=== PATIENT | female | born 1990 | race Native Hawaiian/Other Pacific Islander ===

== ENCOUNTER 2016-08-25 10:26 | Emergency (ER) | payer OTHER ==
--- NOTE | 2016-08-25 11:24 | ED.PDOC ---
History of Present Illness - General Chief Complaint: Respiratory Problem Time Seen by Provider: 08/25/16 11:17 Source: patient Exam Limitations: no limitations Additional Information: 3 WKS COUGH. F/C/S, FRONTAL VALLEJO. V X 4 D/T COUGH. NOT SEEN A YET. - History of Present Illness Severity: moderate Improving Factors: nothing Worsening Factors: nothing Associated Symptoms: cough, headaches Allergies/Adverse Reactions: Allergies Bee Venom Allergy (Verified 05/09/15 15:55) Shortness of Breath Pineapple Allergy (Verified 05/09/15 15:55) Other severe swelling Home Medications: Ambulatory Orders Amoxicillin & Pot Clavulanate [Augmentin] 875 mg PO BID #20 tab 08/25/16 Benzonatate Perles [Tessalon Perles] 100 mg PO TID PRN #30 cap 08/25/16 Methylprednisolone [Medrol Dose Salas] 4 mg PO DAILY #1 tab 08/25/16 Review of Systems - Review of Systems Constitutional: States: chills, fever EENTM: Denies: ear pain, nose pain, throat pain Respiratory: States: cough. Denies: short of breath, wheezing Cardiology: States: no symptoms reported Gastrointestinal/Abdominal: Denies: abdominal pain, nausea Genitourinary: States: no symptoms reported Musculoskeletal: States: other - BODY/MUSCLE ACHES Skin: States: no symptoms reported Neurological: States: no symptoms reported Endocrine: States: no symptoms reported Hematologic/Lymphatic: States: no symptoms reported All other Systems: Reviewed and Negative Past Medical History (General) - Patient Medical History Hx Stroke: No Hx Congestive Heart Failure: No Hx Diabetes: No Hx Cancer: Yes - Cervical Hx MRSA: No - Vaccination History Hx Tetanus, Diphtheria Vaccination: Yes - may Hx Influenza Vaccination: Yes Hx Pneumococcal Vaccination: No - Social History Hx Tobacco Use: Yes Hx Alcohol Use: No Hx Substance Use: No Hx Substance Use Treatment: No Hx Depression: Yes - Female History Patient : Yes Expected Date of Delivery:: 01/09/16 Hx Gestational Age: 21 Family Medical History - Family History Father Living Status: Hx Family Cancer: Yes - pancreas Physical Exam - Physical Exam General Appearance: Alert, Ill Appearing Eye Exam: bilateral normal Ears, Nose, Throat: hearing grossly normal, normal ENT inspection, normal pharynx Neck: non-tender, full range of motion, supple Respiratory: chest non-tender, no respiratory distress, no accessory muscle use , rhonchi, inspiration Cardiovascular/Chest: normal peripheral pulses, regular rate, rhythm, no JVD Peripheral Pulses: radial,right: 2+, radial,left: 2+ Gastrointestinal/Abdominal: normal bowel sounds, non tender, soft Back Exam: normal inspection, no CVA tenderness Extremity: normal range of motion, non-tender Neurologic: ear specialist II-XII nml as tested, alert, oriented x 3 Skin Exam: normal color, warm/dry Lymphatic: no adenopathy Progress - Results/Orders Results/Orders: RAPID STREP, FLU, NEG. BRONCHITIS, COUGH X 3 WKS, VALLEJO - RX ABX, STEROIDS, TESSALON. Departure - Departure Clinical Impression: Bronchitis, Cough, Headache Disposition: Discharge to Home or Self Care Condition: Good Departure Forms: ED Discharge - Pt. Copy, Patient Portal Self Enrollment Instructions: DI for Acute Bronchitis Diet: resume usual diet Activity: increase activity as tolerated Prescriptions: Amoxicillin & Pot Clavulanate [Augmentin] 875 mg PO BID #20 tab Methylprednisolone [Medrol Dose Salas] 4 mg PO DAILY #1 tab Benzonatate Perles [Tessalon Perles] 100 mg PO TID PRN #30 cap PRN Reason: Cough Home Medications: Ambulatory Orders Amoxicillin & Pot Clavulanate [Augmentin] 875 mg PO BID #20 tab 08/25/16 Benzonatate Perles [Tessalon Perles] 100 mg PO TID PRN #30 cap 08/25/16 Methylprednisolone [Medrol Dose Salas] 4 mg PO DAILY #1 tab 08/25/16 Additional Instructions: Please follow-up with your doctor if you are not better by the end of the antibiotic course. I hope you feel better soon!
[2016-08-25 12:00] VITALS: TEMP 98.5; O2SAT 98
[2016-08-25 13:28] VITALS: BP 108/73
== END 2016-08-25 12:30 | disposition home or self-care (01) ==
LOC: ER 10:26
DX: J40 Bronchitis, not specified as acute or chronic (principal); R51 Headache; Z87.891 Personal history of nicotine dependence; Z85.41 Personal history of malignant neoplasm of cervix uteri; Z91.030 Bee allergy status; Z91.018 Allergy to other foods

== ENCOUNTER → 2016-10-02 | Outpatient (CLI) | payer OTHER ==
--- NOTE | 2016-10-02 10:22 | MRI ---
EXAM DESCRIPTION: Brain w/oContrast CLINICAL HISTORY: R53.1, M54.5 acute onset of weakness and back pain, complete weakness on the left side of the body. COMPARISON: None available TECHNIQUE: Non contrast MRI of the brain is performed according to our usual protocol including multiplanar multi sequence technique. FINDINGS: No hemorrhage, mass effect, diffusion restriction, or acute infarction is present.There is normal configuration of the ventricles and sulci. The brain parenchyma and ventricles are normal. No abnormal extra-axial fluid collections are present.Normal flow voids are present. The calvarium is intact. Visualized paranasal sinuses and mastoid air cells are clear. IMPRESSION: Unremarkable MRI of the brain. Electronically signed by: Ben Hamilton MD 10/02/2016 10:21 AM CDT
--- NOTE | 2016-10-02 10:24 | MRI ---
EXAM DESCRIPTION: Cervical Spine CLINICAL HISTORY: WEAKNESS OF RIGHT LEG, LOW BACK PAIN COMPARISON: None Available. TECHNIQUE: MRI of the cervical spine is performed according to our usual protocol. FINDINGS: There is good alignment of the cervical spine. Vertebral body stature is maintained. Craniocervical junction and the cervical spinal cord are unremarkable. C2-3: Unremarkable. C3-4: Unremarkable. C4-5: Unremarkable. C5-6: There is a small 3 mm posterior disc protrusion noted. The midline diameter of the spinal canal is borderline normal measuring 9.5 mm. Bilateral neuroforamen are unremarkable. C6-7: Unremarkable. C7-T1: The disc is well hydrated. There is no loss of height. There is no bulging. The facets are unremarkable with no significant hypertrophy. There is no stenosis or impingement. IMPRESSION: 1. Mild degenerative disc disease at C5-6 with a borderline normal spinal canal. At this time there is no cord contact or definitive spinal canal narrowing of the canal measures 9.5 mm. 2. No abnormal cord signal today's study. Please note that the STIR sequences reveal artifact of the cervical spine at the level of the base of the dens. Electronically signed by: Ben Hamilton MD 10/02/2016 10:23 AM CDT
--- NOTE | 2016-10-02 10:25 | MRI ---
EXAM DESCRIPTION: Thoracic Spine w/o Contrast CLINICAL HISTORY: 26 years Female, WEAKNESS IN RT LEG COMPARISON: None. TECHNIQUE: Multiplanar, multisequence imaging of the thoracic spine was performed without contrast. The data was available for interpretation. FINDINGS: Marrow signal, vertebral body height and alignment are unremarkable. There is no evidence of disc desiccation at this time. The thoracic spinal cord is normal. No evidence of spinal canal narrowing or neuroforaminal narrowing at any level. IMPRESSION: Normal MRI of the thoracic spine. Electronically signed by: Ben Hamilton MD 10/02/2016 10:24 AM CDT
== END | disposition home or self-care (01) ==
LOC: MRI 08:00
PROVIDERS: ATTEND Psychiatry & Neurology Neurology
DX: R53.1 Weakness (principal); M54.5 Low back pain

== ENCOUNTER → 2018-09-11 | Outpatient (CLI) | payer OTHER | LOC: YCFC.O 14:48 | PROVIDERS: ATTEND Nurse Practitioner Family | DX: R30.0 Dysuria (principal) ==

== ENCOUNTER 2019-01-31 19:48 | Emergency (ER) | payer OTHER ==
--- NOTE | 2019-01-31 20:09 | ED.PDOC ---
History of Present Illness - General Chief Complaint: Headache Stated Complaint: nausea, dizzy, migraine after starting meds Time Seen by Provider: 01/31/19 20:08 Source: patient Exam Limitations: no limitations - History of Present Illness Initial Comments: Hamlet Campos 28 y/o female came to ER with watery diarrhea for the last 3 days then followed by nausea/vomting 2 days later unable to get food down .Had also been feeling dizzy and with dull generalized headaches from her migraines.Denies ill contact,no foreign travel.Has history of depression,migraines,endometriosis. Timing/Duration: constant, other - 3 days see hpi Severity: moderate Improving Factors: nothing Worsening Factors: eating Associated Symptoms: other - see hpi Allergies/Adverse Reactions: Allergies Bee Venom Allergy (Verified 01/31/19 20:09) Shortness of Breath Latex Allergy (Verified 01/31/19 20:09) Pineapple Allergy (Verified 01/31/19 20:09) Other severe swelling Home Medications: Ambulatory Orders Buspirone HCl 15 mg PO DAILY 01/31/19 Norgestimate-Ethinyl Estradiol [Sprintec 28 0.25-35 mg-Mcg] 1 tablet PO DAILY 01/31/19 Sertraline HCl 100 mg PO DAILY 01/31/19 Review of Systems - Review of Systems Constitutional: States: no symptoms reported EENTM: States: no symptoms reported Respiratory: States: no symptoms reported Cardiology: States: no symptoms reported Gastrointestinal/Abdominal: States: see HPI Genitourinary: States: no symptoms reported Musculoskeletal: States: no symptoms reported Skin: States: no symptoms reported All other Systems: Reviewed and Negative, No Change from Baseline Past Medical History (General) - Patient Medical History Hx Stroke: No Hx Congestive Heart Failure: No Hx Diabetes: No Hx Cancer: Yes - Cervical Hx MRSA: No Surgical History: other - BTL - Vaccination History Hx Tetanus, Diphtheria Vaccination: Yes - may Hx Influenza Vaccination: Yes Hx Pneumococcal Vaccination: No - Social History Hx Tobacco Use: Yes Hx Alcohol Use: No Hx Substance Use: No Hx Substance Use Treatment: No Hx Depression: Yes Hx Physical Abuse: No Hx Emotional Abuse: No - Female History Patient is a Female of Child Bearing Age (10 -59 yrs old): Yes Hx Last Menstrual Period: 01/04/19 Patient : No Family Medical History - Family History Father Living Status: Hx Family Diabetes: Yes - dad Hx Family Cancer: Yes - -dad;cervix-mom Hx Family;Other: mom-migraine Physical Exam - Physical Exam General Appearance: Alert, Comfortable, No apparent distress Eye Exam: bilateral normal Ears, Nose, Throat: hearing grossly normal, normal ENT inspection, normal pharynx Neck: non-tender, full range of motion, supple, normal inspection Respiratory: chest non-tender, lungs clear, normal breath sounds Cardiovascular/Chest: normal peripheral pulses, regular rate, rhythm, no murmur Peripheral Pulses: radial,right: 2+, radial,left: 2+ Gastrointestinal/Abdominal: normal bowel sounds, non tender, soft, no organomegaly Extremity: no pedal edema, no calf tenderness Neurologic: alert, oriented x 3 Skin Exam: normal color, warm/dry Progress - Progress Progress: 01/31/19 20:26 01/31/19 20:16 IV Care:Saline Lock per [facility] QSHIFT BASIC METABOLIC PANEL Stat CBC (AUTOMATED) W/AUTO DIFF Stat Lactated Ringers [Lr] 1,000 ml IVS ONCE Vital Signs - 8 hr 01/31/19 19:55 Temperature 99.3 F Pulse Rate [ 77 monitor] Respiratory 16 Rate Blood Pressure 137/83 [Left Arm] O2 Sat by Pulse 97 Oximetry - Results/Orders Results/Orders: 01/31/19 20:16 IV Care:Saline Lock per [facility] QSHIFT Laboratory Results - last 24 hr 01/31/19 01/31/19 01/31/19 20:16 20:16 20:27 WBC 9.0 RBC 4.72 Hgb 14.6 Hct 41.8 MCV 88.5 MCH 30.9 MCHC 34.9 RDW 12.8 Plt Count 254 MPV 7.9 Absolute Neuts (auto) 5.00 Absolute Lymphs (auto) 3.10 Absolute Monos (auto) 0.60 Absolute Eos (auto) 0.10 Absolute Basos (auto) 0.10 Neutrophils % 55.8 Lymphocytes % 35.1 Monocytes % 6.8 Eosinophils % 1.7 Basophils % 0.6 Sodium 138 Potassium 4.1 Chloride 103 Carbon Dioxide 27 Anion Gap 12.1 BUN < 5 L Creatinine 0.89 BUN/Creatinine Ratio 5.6 L Random Glucose 104 Serum Osmolality 272.9 L Calcium 9.1 Serum HCG, Qual Negative Discuss all test results with patient Departure - Departure Clinical Impression: Nausea vomiting and diarrhea Migraine Qualifiers: Migraine type: unspecified Status migrainosus presence: without status migrainosus Intractability: not intractable Qualified Code(s): G43.909 - Migraine, unspecified, not intractable, without status migrainosus Time of Disposition: 21:53 Disposition: Discharge to Home or Self Care Condition: Good Departure Forms: ED Discharge - Pt. Copy, Patient Portal Self Enrollment Instructions: DI for Headache, Viral Gastroenteritis, Adult (DC) Diet: bland diet, other - AVOID GREASY /SPICY FOODS UNTIL BETTER Referrals: Phil Donovan MD [Primary Care Provider] - 1-2 Weeks Home Medications: Ambulatory Orders Buspirone HCl 15 mg PO DAILY 01/31/19 Norgestimate-Ethinyl Estradiol [Sprintec 28 0.25-35 mg-Mcg] 1 tablet PO DAILY 01/31/19 Sertraline HCl 100 mg PO DAILY 01/31/19 Additional Instructions: Continue with all home medications;Return to Emergency room as needed
[2019-01-31] MEDS ORDERED: PROCHLORPERAZINE INJ 10 MG/2 ML VIAL IV ONE (20:16)
[2019-01-31] MEDS ORDERED: KETOROLAC TROMETHAMINE INJ 30 MG/ML VIAL IV ONE (20:16)
[2019-01-31] MEDS ORDERED: LACTATED RINGERS 1,000 ML IVS ONE (20:16)
[2019-01-31] MEDS ORDERED: PROMETHAZINE TAB (ER DISP) 25 MG TAB PO ONE (21:57)
[2019-01-31] MEDS ORDERED: HYDROCOD/APAP 5/325 (ER DISP) #3 TAB PO ONE (21:57)
[2019-01-31] MEDS ORDERED: HYDROcodone 5MG/APAP 325MG 1 EA TAB PO ONE (21:57)
[2019-01-31 22:10] VITALS: BP 106/66; TEMP 99; O2SAT 99
== END 2019-01-31 22:12 | disposition home or self-care (01) ==
LOC: ER 19:48
DX: R11.2 Nausea with vomiting, unspecified (principal); R19.7 Diarrhea, unspecified; G43.909 Migraine, unspecified, not intractable, without status migrainosus; R42 Dizziness and giddiness; F32.9 Major depressive disorder, single episode, unspecified; Z87.891 Personal history of nicotine dependence; Z85.41 Personal history of malignant neoplasm of cervix uteri; Z79.899 Other long term (current) drug therapy; Z91.040 Latex allergy status
CPT/HCPCS: 36415; 80048; 84703; 85025; J1885; J7120; Q0169

== ENCOUNTER → 2019-12-27 | Outpatient (CLI) | payer OTHER | LOC: YCFC.O 12:44 | PROVIDERS: ATTEND Nurse Practitioner | DX: L02.91 Cutaneous abscess, unspecified (principal) ==

== ENCOUNTER 2020-02-05 09:35 | Emergency (ER) | payer OTHER ==
[2020-02-05 09:58] VITALS: O2SAT 99
--- NOTE | 2020-02-05 10:15 | ED.PDOC ---
History of Present Illness - General Chief Complaint: General Stated Complaint: L rib pain x 2 weeks Time Seen by Provider: 02/05/20 09:45 - History of Present Illness Initial Comments: This is a 29-year-old female presenting with left lower anterior rib pain, inframammary, ongoing for 2 weeks. Patient states the pain began 2 weeks ago when a friend "bear hugged her". She states she felt a pop at that time. She has had persistent pain, particularly with movements, deep breathing, and coughing. She is taken Tylenol, ibuprofen without much improvement. She denies any fever. She denies any shortness of breath, only pain with breathing. No abdominal pain, no other injuries. Allergies/Adverse Reactions: Allergies Bee Venom Allergy (Verified 02/05/20 10:03) Shortness of Breath Latex Allergy (Verified 02/05/20 10:03) Pineapple Allergy (Verified 02/05/20 10:03) Other severe swelling Tramadol Allergy (Verified 02/05/20 10:03) Pt states that it makes her "blackout and fall" Home Medications: Ambulatory Orders Acetamin W/Cod #3 Tab [Tylenol w/CODEINE #3] 1 - 2 ea PO Q6H PRN #20 tab 02/05/20 Aripiprazole 2 mg PO DAILY 02/05/20 Buspirone HCl [Buspirone Hydrochloride] 10 mg PO BID 02/05/20 Escitalopram [Lexapro] 10 mg PO DAILY 02/05/20 Trazodone HCl [Trazodone Hydrochloride] 100 mg PO DAILY 02/05/20 Review of Systems - Review of Systems Constitutional: Denies: chills, fever EENTM: Denies: nose congestion, throat pain, mouth pain Respiratory: Denies: cough, orthopnea, short of breath Cardiology: States: chest pain. Denies: edema, palpitations Gastrointestinal/Abdominal: Denies: abdominal pain, diarrhea, nausea, vomiting Musculoskeletal: Denies: joint pain, joint swelling, muscle pain, muscle stiffness Skin: Denies: lesions, rash Neurological: States: no symptoms reported Endocrine: States: no symptoms reported Past Medical History (General) - Patient Medical History Hx Seizures: No Hx Stroke: No Hx Dementia: No Hx Asthma: No Hx of COPD: No Hx Cardiac Disorders: No Hx Congestive Heart Failure: No Hx Pacemaker: No Hx Hypertension: No Hx Thyroid Disease: No Hx Diabetes: No Hx Gastroesophageal Reflux: No Hx Renal Disease: No Hx Cancer: No Hx of HIV: No Hx Hepatitis C: No Hx MRSA: No MRSA Source:: Wound Surgical History: Hysterectomy, other - Vaccination History Hx Tetanus, Diphtheria Vaccination: Yes - may Hx Influenza Vaccination: Yes Hx Pneumococcal Vaccination: No - Social History Hx Tobacco Use: Yes Hx Alcohol Use: Yes Hx Substance Use: No Hx Substance Use Treatment: No Hx Depression: Yes Hx Physical Abuse: No Hx Emotional Abuse: No - Female History Patient is a Female of Child Bearing Age (10 -59 yrs old): Yes Hx Last Menstrual Period: 01/04/19 Patient : No - Hyst Expected Date of Delivery:: 01/09/16 Hx Gestational Age: 22 Family Medical History - Family History Father Living Status: Hx Family Diabetes: Yes - dad Hx Family Cancer: Yes - -dad;cervix-mom Hx Family;Other: mom-migraine Physical Exam - Physical Exam General Appearance: Alert, Comfortable Ears, Nose, Throat: normal ENT inspection Neck: non-tender, full range of motion, supple Respiratory: lungs clear, normal breath sounds, no respiratory distress, no accessory muscle use, other - Tender left anterior and lateral lower ribs, inframammary. No step-offs, no crepitus, no deformity palpated. There is no bruising. There is no rash. Cardiovascular/Chest: normal peripheral pulses, regular rate, rhythm, no edema Gastrointestinal/Abdominal: non tender, soft Back Exam: normal inspection, no vertebral tenderness Extremity: normal range of motion, normal inspection Neurologic: alert, oriented x 3 Skin Exam: normal color, warm/dry Progress - Progress Progress: 02/05/20 10:20 Rechecked. Discussed x-ray and EKG findings as well as plan for discharge. Recommended follow-up with PCP in 3 to 5 days for recheck and ongoing pain control. Strict warnings given to return the emergency room for shortness of breath, hemoptysis, blood in stool, vomiting blood, fever, or any other concerns - Results/Orders Results/Orders: Left rib series reviewed personally by me at 10:13 AM. There is a possible distal left 10th rib fracture, not significantly displaced. No pneumothorax. EKG reviewed personally by me at 10:16 AM. Normal sinus rhythm, rate 76, normal axis, normal intervals, no ST segment elevations or depressions. Departure - Departure Clinical Impression: Acute chest wall pain Closed rib fracture Qualifiers: Encounter type: initial encounter Rib fracture type: single rib Laterality: left Qualified Code(s): S22.32XA - Fracture of one rib, left side, initial encounter for closed fracture Time of Disposition: 10:19 Disposition: Discharge to Home or Self Care Departure Forms: ED Discharge - Pt. Copy, Patient Portal Self Enrollment Instructions: Rib Fracture (DC), How to Use an Incentive Spirometer Diet: resume usual diet Activity: increase activity as tolerated Referrals: Phil Donovan MD [Primary Care Provider] - 1-5 Days Prescriptions: Acetamin W/Cod #3 Tab [Tylenol w/CODEINE #3] 1 - 2 ea PO Q6H PRN #20 tab PRN Reason: Moderate To Severe Pain Home Medications: Ambulatory Orders Acetamin W/Cod #3 Tab [Tylenol w/CODEINE #3] 1 - 2 ea PO Q6H PRN #20 tab 02/05/20 Aripiprazole 2 mg PO DAILY 02/05/20 Buspirone HCl [Buspirone Hydrochloride] 10 mg PO BID 02/05/20 Escitalopram [Lexapro] 10 mg PO DAILY 02/05/20 Trazodone HCl [Trazodone Hydrochloride] 100 mg PO DAILY 02/05/20
[2020-02-05] MEDS: ACETAMINOPHEN W/COD #3 TAB 1 EA TAB PO ONE (10:22)
--- NOTE | 2020-02-05 10:29 | RAD ---
EXAM DESCRIPTION: Ribs,Left 3 Views CLINICAL HISTORY: 29 years Female left rib pain COMPARISON: None TECHNIQUE: AP and oblique views of the left ribs are obtained. FINDINGS: The visualized lungs are clear with no evidence of acute consolidation. There is no evidence of pleural fluid or pneumothorax. The osseous structures are intact. Specifically, the ribs show no evidence of acute fracture, osseous destruction or osteoblastic lesions. The soft tissues are intact without evidence of subcutaneous emphysema. IMPRESSION: No acute osseous abnormality. Remainder of findings as described above. Electronically signed by: Devora Chua MD 02/05/2020 10:27 AM CDT
[2020-02-05 10:42] VITALS: BP 124/85; TEMP 97
== END 2020-02-05 10:30 | disposition home or self-care (01) ==
LOC: ER 09:35
DX: S22.32XA Fracture of one rib, left side, initial encounter for closed fracture (principal); R07.89 Other chest pain; W22.8XXA Striking against or struck by other objects, initial encounter; Y92.9 Unspecified place or not applicable

== ENCOUNTER 2020-05-02 17:04 | Emergency (ER) | payer OTHER ==
[2020-05-02] MEDS ORDERED: cefTRIAXone SODIUM 1 GM VIAL IM ONE (17:21)
[2020-05-02] MEDS ORDERED: KETOROLAC TROMETHAMINE INJ 60 MG/2 ML VIAL IM ONE (17:22)
--- NOTE | 2020-05-02 17:26 | ED.PDOC ---
History of Present Illness - General Chief Complaint: Dental/Mouth Stated Complaint: Left upper toothache and F/C Time Seen by Provider: 05/02/20 17:21 Source: patient Exam Limitations: no limitations - History of Present Illness Initial Comments: Started 2 days ago Severity: moderate EENT Location: mouth Prearrival Treatment: no prearrival treatment Improving Factors: nothing Worsening Factors: eating Associated Symptoms: fever, tooth pain Allergies/Adverse Reactions: Allergies Bee Venom Allergy (Verified 02/05/20 10:03) Shortness of Breath Latex Allergy (Verified 02/05/20 10:03) Pineapple Allergy (Verified 02/05/20 10:03) Other severe swelling Tramadol Allergy (Verified 02/05/20 10:03) Pt states that it makes her "blackout and fall" Home Medications: Ambulatory Orders Acetamin W/Cod #3 Tab [Tylenol w/CODEINE #3] 1 - 2 ea PO Q6H PRN #20 tab 02/05/20 Aripiprazole 2 mg PO DAILY 02/05/20 Buspirone HCl [Buspirone Hydrochloride] 10 mg PO BID 02/05/20 Escitalopram [Lexapro] 10 mg PO DAILY 02/05/20 Trazodone HCl [Trazodone Hydrochloride] 100 mg PO DAILY 02/05/20 Acetaminophen W/ Codeine [Tylenol W/ CODEINE #3] 1 tab PO QID #25 tab 05/02/20 Penicillin V Potassium 500 mg PO QID #40 tab 05/02/20 Review of Systems - Review of Systems Constitutional: States: chills, fever EENTM: States: mouth pain, mouth swelling, other - mild right facial swelling. Denies: blurred vision, tearing, ear pain, ear discharge, nose pain, nose congestion, throat pain, throat swelling Respiratory: States: no symptoms reported Cardiology: States: no symptoms reported Gastrointestinal/Abdominal: States: no symptoms reported Genitourinary: States: no symptoms reported Skin: States: no symptoms reported Endocrine: States: no symptoms reported Past Medical History (General) - Patient Medical History Hx Seizures: No Hx Stroke: No Hx Dementia: No Hx Asthma: No Hx of COPD: No Hx Cardiac Disorders: No Hx Congestive Heart Failure: No Hx Pacemaker: No Hx Hypertension: No Hx Thyroid Disease: No Hx Diabetes: No Hx Gastroesophageal Reflux: No Hx Renal Disease: No Hx Cancer: No Hx of HIV: No Hx Hepatitis C: No Hx MRSA: No MRSA Source:: Wound - Vaccination History Hx Tetanus, Diphtheria Vaccination: Yes - may Hx Influenza Vaccination: Yes Hx Pneumococcal Vaccination: No - Social History Hx Tobacco Use: Yes Hx Alcohol Use: Yes Hx Substance Use: No Hx Substance Use Treatment: No Hx Depression: Yes Hx Physical Abuse: No Hx Emotional Abuse: No - Female History Hx Last Menstrual Period: 01/04/19 Patient : No - Hyst Expected Date of Delivery:: 01/09/16 Hx Gestational Age: 22 Family Medical History - Family History Father Living Status: Hx Family Diabetes: Yes - dad Hx Family Cancer: Yes - -dad;cervix-mom Hx Family;Other: mom-migraine Physical Exam - Physical Exam General Appearance: Alert, No apparent distress, Well Developed, Well Groomed, Well Hydrated, Well Nourished Nasal Exam: normal inspection Throat Exam: dental tenderness - right upper teeth with surrounding erythema; no obvious drainable abscess. Tongue, sublingual space, posterior OP unremarkable. No hoarseness, no stridor, swallowing secretions. Neck: full range of motion, supple, normal inspection, trachea midline, tender lateral - along cervical node chain, but no obvious adenopathy, fluctuance, erythema, warmth. Cardiovascular/Respiratory: regular rate, rhythm, no M/R/G, normal peripheral p ulses Neurologic: alert, normal mood/affect, other - flat affect Skin Exam: normal color Progress - Progress Progress: 05/02/20 17:55 Nothing clinical to suggest airway issue or deep tissue infection. Pt will receive Rocephin 1gm IM and Toradol 60mg IM in ER prior to d/c. Departure - Departure Clinical Impression: Dental abscess Time of Disposition: 17:29 Disposition: Discharge to Home or Self Care Condition: Excellent Departure Forms: ED Discharge - Pt. Copy, Patient Portal Self Enrollment Instructions: DI for Mouth Pain, Tooth Abscess (DC) Diet: resume usual diet Referrals: Phil Donovan MD [Primary Care Provider] - 1-2 Weeks Prescriptions: Penicillin V Potassium 500 mg PO QID #40 tab Acetaminophen W/ Codeine [Tylenol W/ CODEINE #3] 1 tab PO QID #25 tab Home Medications: Ambulatory Orders Acetamin W/Cod #3 Tab [Tylenol w/CODEINE #3] 1 - 2 ea PO Q6H PRN #20 tab 02/05/20 Aripiprazole 2 mg PO DAILY 02/05/20 Buspirone HCl [Buspirone Hydrochloride] 10 mg PO BID 02/05/20 Escitalopram [Lexapro] 10 mg PO DAILY 02/05/20 Trazodone HCl [Trazodone Hydrochloride] 100 mg PO DAILY 02/05/20 Acetaminophen W/ Codeine [Tylenol W/ CODEINE #3] 1 tab PO QID #25 tab 05/02/20 Penicillin V Potassium 500 mg PO QID #40 tab 05/02/20
[2020-05-02 17:34] VITALS: TEMP 99.2; O2SAT 98
[2020-05-02] MEDS ORDERED: LIDOCAINE 1% 10 ML VIAL INJ ONE (17:34)
[2020-05-02 18:08] VITALS: BP 100/58
== END 2020-05-02 18:07 | disposition home or self-care (01) ==
LOC: ER 17:04
DX: K04.7 Periapical abscess without sinus (principal); F32.9 Major depressive disorder, single episode, unspecified; Z87.891 Personal history of nicotine dependence; Z79.899 Other long term (current) drug therapy; Z88.5 Allergy status to narcotic agent; Z91.040 Latex allergy status
CPT/HCPCS: J0696; J1885

== ENCOUNTER 2020-05-04 16:05 | Emergency (ER) | payer OTHER ==
[2020-05-04] MEDS ORDERED: SODIUM CHLORIDE 0.9% 1000ML 1,000 ML IVS ONE (17:05)
[2020-05-04] MEDS ORDERED: PROMETHAZINE HCL INJ 25 MG in SODIUM CHLORIDE 0.9% 50ML 50 ML IVPB ONE (17:06)
[2020-05-04] MEDS ORDERED: KETOROLAC TROMETHAMINE INJ 30 MG/ML VIAL IM ONE (17:54)
[2020-05-04] MEDS ORDERED: HYDROcodone 7.5MG/APAP 325MG 1 EA TAB PO ONE (17:54)
[2020-05-04] MEDS ORDERED: CLINDAMYCIN HCL CAP 150 MG CAP PO ONE (18:24)
[2020-05-04] MEDS ORDERED: predniSONE 20 MG TAB PO ONE (18:25)
--- NOTE | 2020-05-04 19:02 | ED.PDOC ---
History of Present Illness - General Chief Complaint: Dental/Mouth Stated Complaint: oral abscess Time Seen by Provider: 05/04/20 17:05 Source: patient Exam Limitations: no limitations - History of Present Illness Initial Comments: The patient is a 29-year-old female presenting to the emergency room secondary to persistent pain due to infected dental caries both on the right upper molars and right lower molars. She has mild swelling below the right mandible but no drainable abscess at this point. The patient has brought this to the roof of her mouth. Poor oral intake for the last couple of days. She reports she has been taking the penicillin and Tylenol 3 written for her here several days ago. Questionable fevers. She feels like she is dehydrated. Timing/Duration: 1 week, constant, getting worse Severity: severe Improving Factors: nothing Worsening Factors: eating Associated Symptoms: denies symptoms Allergies/Adverse Reactions: Allergies Bee Venom Allergy (Verified 02/05/20 10:03) Shortness of Breath Latex Allergy (Verified 02/05/20 10:03) Pineapple Allergy (Verified 02/05/20 10:03) Other severe swelling Tramadol Allergy (Verified 02/05/20 10:03) Pt states that it makes her "blackout and fall" Home Medications: Ambulatory Orders Acetamin W/Cod #3 Tab [Tylenol w/CODEINE #3] 1 - 2 ea PO Q6H PRN #20 tab 02/05/20 Aripiprazole 2 mg PO DAILY 02/05/20 Buspirone HCl [Buspirone Hydrochloride] 10 mg PO BID 02/05/20 Escitalopram [Lexapro] 10 mg PO DAILY 02/05/20 Trazodone HCl [Trazodone Hydrochloride] 100 mg PO DAILY 02/05/20 Acetaminophen W/ Codeine [Tylenol W/ CODEINE #3] 1 tab PO QID #25 tab 05/02/20 Penicillin V Potassium 500 mg PO QID #40 tab 05/02/20 Clindamycin HCl 300 mg PO Q8HR #30 cap 05/04/20 predniSONE [Prednisone] 20 mg PO DAILY #5 tab 05/04/20 Review of Systems - Review of Systems Constitutional: States: malaise EENTM: States: mouth pain Respiratory: States: no symptoms reported Cardiology: States: no symptoms reported Gastrointestinal/Abdominal: States: no symptoms reported Genitourinary: States: no symptoms reported Musculoskeletal: States: no symptoms reported Skin: States: no symptoms reported Neurological: States: no symptoms reported Endocrine: States: no symptoms reported All other Systems: No Change from Baseline Past Medical History (General) - Patient Medical History Hx Seizures: No Hx Stroke: No Hx Dementia: No Hx Asthma: No Hx of COPD: No Hx Cardiac Disorders: No Hx Congestive Heart Failure: No Hx Pacemaker: No Hx Hypertension: No Hx Thyroid Disease: No Hx Diabetes: No Hx Gastroesophageal Reflux: No Hx Renal Disease: No Hx Cancer: No Hx of HIV: No Hx Hepatitis C: No Hx MRSA: No MRSA Source:: Wound - Vaccination History Hx Tetanus, Diphtheria Vaccination: Yes - may Hx Influenza Vaccination: Yes Hx Pneumococcal Vaccination: No - Social History Hx Tobacco Use: Yes Hx Alcohol Use: Yes Hx Substance Use: No Hx Substance Use Treatment: No Hx Depression: Yes Hx Physical Abuse: No Hx Emotional Abuse: No - Female History Hx Last Menstrual Period: 01/04/19 Patient : No - Hyst Expected Date of Delivery:: 01/09/16 Hx Gestational Age: 22 Family Medical History - Family History Father Living Status: Hx Family Diabetes: Yes - dad Hx Family Cancer: Yes - -dad;cervix-mom Hx Family;Other: mom-migraine Physical Exam - Physical Exam General Appearance: Alert, Other - Obviously uncomfortable Eye Exam: bilateral normal Ears, Nose, Throat: hearing grossly normal, other - See history of present illness Neck: full range of motion, supple Respiratory: lungs clear, normal breath sounds, no respiratory distress, no accessory muscle use Cardiovascular/Chest: normal peripheral pulses, regular rate, rhythm, no edema Peripheral Pulses: radial,right: 2+, radial,left: 2+ Gastrointestinal/Abdominal: non tender, soft Rectal Exam: deferred Extremity: normal range of motion, no pedal edema 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 She does have very mild swelling below the right mandible however there is no drainable abscess at this point. The patient is going to be written for clindamycin to take in addition to the penicillin. She can continue to take the Tylenol 3 for pain and she can also use Motrin or Aleve. She will also be written for 3 days of oral prednisone to help reduce inflammation. The patient can also sisal picker Chloraseptic spray in order to help reduce inflammation of the oral mucosa. She does need to see a dentist to get the teeth treated. ER warnings are given. She did receive a liter of IV fluids here for mild dehydration due to poor oral intake. nayely he [id number] - Results/Orders Results/Orders: Laboratory Tests 05/04/20 05/04/20 17:25 17:25 WBC 7.7 RBC 4.84 Hgb 15.5 Hct 43.5 MCV 89.9 MCH 32.0 H MCHC 35.6 RDW 12.9 Plt Count 197 MPV 7.8 Absolute Neuts (auto) 5.10 Absolute Lymphs (auto) 1.90 Absolute Monos (auto) 0.60 Absolute Eos (auto) 0.00 Absolute Basos (auto) 0.00 Neutrophils % 65.6 Lymphocytes % 25.2 Monocytes % 8.1 Eosinophils % 0.6 L Basophils % 0.5 Sodium 136 Potassium 3.7 Chloride 99 L Carbon Dioxide 26 Anion Gap 14.7 BUN 8 Creatinine 0.62 BUN/Creatinine Ratio 12.9 Random Glucose 80 Serum Osmolality 269.3 L Calcium 9.0 Total Bilirubin 0.7 AST 22 ALT 17 Alkaline Phosphatase 74 Serum Total Protein 7.5 Albumin 4.4 Globulin 3.1 Albumin/Globulin Ratio 1.4 Departure - Departure Clinical Impression: Painful mouth, Dental caries Disposition: Discharge to Home or Self Care Condition: Fair Departure Forms: ED Discharge - Pt. Copy, Patient Portal Self Enrollment Diet: other Activity: increase activity as tolerated Referrals: Phil Donovan MD [Primary Care Provider] - 1-2 Weeks Prescriptions: Clindamycin HCl 300 mg PO Q8HR #30 cap predniSONE [Prednisone] 20 mg PO DAILY #5 tab Home Medications: Ambulatory Orders Acetamin W/Cod #3 Tab [Tylenol w/CODEINE #3] 1 - 2 ea PO Q6H PRN #20 tab 02/05/20 Aripiprazole 2 mg PO DAILY 02/05/20 Buspirone HCl [Buspirone Hydrochloride] 10 mg PO BID 02/05/20 Escitalopram [Lexapro] 10 mg PO DAILY 02/05/20 Trazodone HCl [Trazodone Hydrochloride] 100 mg PO DAILY 02/05/20 Acetaminophen W/ Codeine [Tylenol W/ CODEINE #3] 1 tab PO QID #25 tab 05/02/20 Penicillin V Potassium 500 mg PO QID #40 tab 05/02/20 Clindamycin HCl 300 mg PO Q8HR #30 cap 05/04/20 predniSONE [Prednisone] 20 mg PO DAILY #5 tab 05/04/20 Additional Instructions: The patient is a 29-year-old female presented emergency room secondary to pain from her infected dental caries. She does have very mild swelling below the right mandible however there is no drainable abscess at this point. The patient is going to be written for clindamycin to take in addition to the penicillin. She can continue to take the Tylenol 3 for pain and she can also use Motrin or Aleve. She will also be written for 3 days of oral prednisone to help reduce inflammation. The patient can also sisal picker Chloraseptic spray in order to help reduce inflammation of the oral mucosa. She does need to see a dentist to get the teeth treated. ER warnings are given. She did receive a liter of IV fluids here for mild dehydration due to poor oral intake.
[2020-05-04 19:13] VITALS: BP 100/66; TEMP 98.4; O2SAT 97
== END 2020-05-04 19:13 | disposition home or self-care (01) ==
LOC: ER 16:05
DX: K02.9 Dental caries, unspecified (principal); Z91.040 Latex allergy status; F17.200 Nicotine dependence, unspecified, uncomplicated; E86.0 Dehydration
CPT/HCPCS: 36415; 80053; 85025; 87040; A4216; J1885; J2550; J7030; J7512